=== PATIENT | female | born 1990 | race African-American/Black ===

== ENCOUNTER 2018-07-06 16:45 | Emergency (ER) | payer OTHER ==
[2018-07-06 17:44] LABS: Absolute Lymphocytes (CBC) 1.6 K/uL (0.7-4.9); Absolute Monocytes 0.6 K/uL (0.1-1.3); Absolute Neutrophil 6.6 K/uL (1.8-8.0); Basophils % 0.4 % (0-1.3); Eosinophils % 0.3 % (0-4.4); Hematocrit 33.1 % (36.0-45.0); Lymphocytes % 18.5 % (15.3-44.8); MCH 31.2 pg (27.0-35.0); MCV 92.4 fL (80-100); MPV 10.1 fL (7.6-11.3); Monocytes % 6.3 % (3.3-12.3); RBC Red Blood Cell Count 3.58 M/uL (3.86-4.86)
[2018-07-06 18:22] LABS: BUN Blood Urea Nitrogen 10 mg/dL (7-18); Bicarbonate 24 mmol/L (21-32); Glucose Level 105 mg/dL (74-106); Potassium 3.4 mmol/L (3.5-5.1); Sodium Level 138 mmol/L (136-145)
[2018-07-06] MEDS ORDERED: NA CHLORIDE 0.9% 1,000 ML ONE (18:26)
[2018-07-06 19:53] LABS: HCG, Quantitative 4558 mIU/mL (1-3)
--- NOTE | 2018-07-06 21:19 | RAD REPORT ---
EXAM DESCRIPTION: US - Pelvis Complete - 07/06/2018 9:11 pm CLINICAL HISTORY: , vaginal bleeding COMPARISON: None. TECHNIQUE: Transabdominal pelvic sonography was performed. FINDINGS: No intrauterine gestational sac or sac remnant seen. There is a 5 centimeter heterogeneous focus within the cervical canal believed to be hemorrhagic material. No myometrial mass. Trace amoun t of fluid in the cul-de-sac. Both ovaries are identified and normal. Blood flow is seen within the o varian stroma. No adnexal mass to suspect ectopic . IMPRESSION: Large hematoma in the cervical canal. No gestational sac or sac remnant in the uterus. No evidence for an ectopic .
--- NOTE | 2018-07-06 22:12 | ER ---
Nurse's Notes [facility] Name: Soco Silver Age: 28 yrs Sex: Female : 1990 Arrival Date: 07/06/2018 Time: 16:46 Bed 16 Private MD: Renny Guadarrama Diagnosis: Incomplete spontaneous without complication Presentation: 07/06 16:55 Presenting complaint: Patient states: Cramping since Saturday, bleeding heavily since la1 last nigh, about 10 weeks . Transition of care: patient was not received from another setting of care. Onset of symptoms was July 06, 2018. Risk Assessment: Do you want to hurt yourself or someone else? Patient reports no desire to harm self or others. Initial Sepsis Screen: Does the patient meet any 2 criteria? No. Patient's initial sepsis screen is negative. Does the patient have a suspected source of infection? No. Patient's initial sepsis screen is negative. Care prior to arrival: None. 16:55 Method Of Arrival: Ambulatory la1 16:55 Acuity: XOCHITL 2 la1 HOSIERY KNITTER: 16:58 5, 1, Living 3 kb 17:00 LMP N/A - Irregular menses rb1 Historical: - Allergies: 16:55 No Known Allergies; la1 - Home Meds: 17:00 None [Active]; rb1 - PMHx: 17:00 miscarriage; rb1 - PSHx: 17:00 None; rb1 - Immunization history:: Adult Immunizations up to date. - Social history:: Smoking status: Patient/guardian denies using tobacco. - Ebola Screening: : No symptoms or risks identified at this time. Screenin:00 Abuse screen: Denies threats or abuse. Nutritional screening: No deficits noted. rb1 Tuberculosis screening: No symptoms or risk factors identified. Fall Risk None identified. Assessment: 17:00 General: Appears in no apparent distress. comfortable. Pain: Complains of pain in left rb1 lower quadrant and right lower quadrant Pain radiates to back Pain currently is 6 out of 10 on a pain scale. Neuro: Level of Consciousness is awake, alert, obeys commands, Oriented to person, place, time, situation. Cardiovascular: Capillary refill < 3 seconds is brisk in bilateral fingers. Respiratory: Airway is patent Respiratory effort is even, unlabored, Respiratory pattern is regular, symmetrical. GI: No signs and/or symptoms were reported involving the gastrointestinal system. : Parent/caregiver report the patient having vaginal bleeding that is bright red with clots moderate flow x 4 pads today. Derm: Skin is dry, Skin is normal, Skin temperature is warm. 17:00 Obstetrical Assessment: Patient reports abdominal cramping, back pain. rb1 18:00 Reassessment: Patient appears in no apparent distress at this time. No changes from rb1 previously documented assessment. 19:05 Reassessment: Patient appears in no apparent distress at this time. No changes from jb4 previously documented assessment. Patient is alert, oriented x 3, equal unlabored respirations, skin warm/dry/pink. Pain: Denies pain. Cardiovascular: Patient's skin is warm and dry. Respiratory: Airway is patent Respiratory effort is even, unlabored, Respiratory pattern is regular, symmetrical. 20:00 Reassessment: Patient appears in no apparent distress at this time. No changes from jb4 previously documented assessment. Patient is alert, oriented x 3, equal unlabored respirations, skin warm/dry/pink. 21:00 Reassessment: Patient appears in no apparent distress at this time. No changes from jb4 previously documented assessment. Patient is alert, oriented x 3, equal unlabored respirations, skin warm/dry/pink. 22:00 Reassessment: Patient appears in no apparent distress at this time. No changes from jb4 previously documented assessment. Patient is alert, oriented x 3, equal unlabored respirations, skin warm/dry/pink. Provider at the bedside performing pelvic exam. 22:50 Reassessment: Patient appears in no apparent distress at this time. No changes from jb4 previously documented assessment. Patient is alert, oriented x 3, equal unlabored respirations, skin warm/dry/pink. Vital Signs: 16:54 Pulse 138; Resp 16; Temp 97.2; Pulse Ox 98% on R/A; la1 16:57 BP 121 / 98; la1 18:26 BP 123 / 89; Pulse 98; Resp 19; Pulse Ox 100% on R/A; Pain 6/10; rb1 19:00 BP 114 / 72; Pulse 77; Resp 18; Pulse Ox 100% on R/A; jb4 20:00 BP 104 / 75; Pulse 86; Resp 16; Pulse Ox 94% on R/A; jb4 21:00 BP 109 / 68; Pulse 82; Resp 16; Pulse Ox 97% on R/A; jb4 22:00 BP 115 / 57; Pulse 79; Resp 16; Pulse Ox 96% on R/A; jb4 22:50 BP 107 / 64; Pulse 76; Resp 18; Pulse Ox 100% ; jb4 ED Course: 16:46 Patient arrived in ED. sb2 16:47 Renny Guadarrama MD is Private Physician. sb2 16:48 Niecy Diaz FNP-C is [facility]. kb 16:48 Leonardo Mcclendon MD is Attending Physician. kb 16:54 Arm band placed on right wrist. la1 16:55 Triage completed. la1 17:00 Patient has correct armband on for positive identification. Bed in low position. Call rb1 light in reach. Side rails up X 1. Pulse ox on. NIBP on. Warm blanket given. 17:28 Initial lab(s) drawn, by me, sent to lab. T\T\S collected, blood band applied to patient. dh3 Inserted saline lock: 20 gauge in right antecubital area, using aseptic technique. Blood collected. 18:13 Angi Serna, RN is Primary Nurse. rb1 19:00 Report given to RANDY Contreras. rb1 19:49 Radiology exam delayed due to test not completed at this time. sg3 22:50 No provider procedures requiring assistance completed. IV discontinued, intact, jb4 bleeding controlled. Administered Medications: 18:26 Drug: NS 0.9% 1000 ml Route: IV; Rate: 1000 ml; Site: right antecubital; rb1 20:00 Follow up: Response: No adverse reaction; IV Status: Completed infusion jb4 22:49 Drug: [place] (7.5 mg-325 mg) 1 tabs Route: PO; jb4 22:49 Follow up: Response: No adverse reaction jb4 Outcome: 22:11 Discharge ordered by . kb 22:50 Discharged to home ambulatory. jb4 22:50 Condition: stable 22:50 Discharge instructions given to patient, family, Instructed on discharge instructions, follow up and referral plans. Demonstrated understanding of instructions, follow-up care. 22:51 Patient left the ED. jb4 Signatures: Niecy Diaz FNP-C FNP-Young Callahan RN RN la1 Angi Serna, RANDY RN rb1 Johan Dinero RN RN jb4 Kathie Unger 3 Christin Ariza 3 Lo Bee sb2 Corrections: (The following items were deleted from the chart) 18:32 16:55 PMHx: None; la1 rb1 22:14 22:11 Reassessment: Patient appears in no apparent distress at this time. No changes jb4 from previously documented assessment. Patient is alert, oriented x 3, equal unlabored respirations, skin warm/dry/pink. jb4
--- NOTE | 2018-07-06 22:13 | EDPHYS ---
Physician Documentation [facility] Name: Soco Silver Age: 28 yrs Sex: Female : 1990 Arrival Date: 07/06/2018 Time: 16:46 Bed 16 Private MD: Renny Guadarrama ED Physician Leonardo Mcclendon HPI: 07/06 16:58 This 28 yrs old Black Female presents to ER via Ambulatory with complaints of Vaginal kb Bleeding, + Preg <12wks. 16:58 The patient presents to the emergency department with abdominal pain, of the right kb lower quadrant and left lower quadrant, that started 3 day(s) ago, described as crampy, vaginal bleeding, that is moderate. The estimated gestational age is 8 weeks. course: care: private OB physician, Dr. Gonsalves, the patient's last check was July 03, 2018. Previous pregnancies: in previous pregnancies patient has had. Associated signs and symptoms: Pertinent positives: abdominal pain, vaginal bleeding. The patient has not experienced similar symptoms in the past. The patient has been recently seen by a physician: Dr. Gonsalves 4 day(s) ago. Pt states she saw Dr Gonsalves on for initial OB visit. Saturday started having vaginal bleeding and abd cramping. States symptoms got really bad last night and she was passing clots. Bleeding subsided today as well as pain, but it came back 1.5 hours ago . 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 - Social history:: Smoking status: Patient/guardian denies using tobacco. - Ebola Screening: : No symptoms or risks identified at this time. ROS: 16:58 Constitutional: Negative for fever, chills, and weight loss, Cardiovascular: Negative kb for chest pain, palpitations, and edema, Respiratory: Negative for shortness of breath, cough, wheezing, and pleuritic chest pain, Back: Negative for injury and pain, MS/Extremity: Negative for injury and deformity, Skin: Negative for injury, rash, and discoloration, Neuro: Negative for headache, weakness, numbness, tingling, and seizure. 16:58 Abdomen/GI: Positive for abdominal cramps. 16:58 : Positive for vaginal bleeding. Exam: 16:58 Constitutional: This is a well developed, well nourished patient who is awake, alert, kb and in no acute distress. Head/Face: Normocephalic, atraumatic. ENT: Nares patent. No nasal discharge, no septal abnormalities noted. Tympanic membranes are normal and external auditory canals are clear. Oropharynx with no redness, swelling, or masses, exudates, or evidence of obstruction, uvula midline. Mucous membranes moist. Neck: Trachea midline, no thyromegaly or masses palpated, and no cervical lymphadenopathy. Supple, full range of motion without nuchal rigidity, or vertebral point tenderness. No Meningismus. Chest/axilla: Normal chest wall appearance and motion. Nontender with no deformity. No lesions are appreciated. Cardiovascular: Regular rate and rhythm with a normal S1 and S2. No gallops, murmurs, or rubs. Normal PMI, no JVD. No pulse deficits. Respiratory: Lungs have equal breath sounds bilaterally, clear to auscultation and percussion. No rales, rhonchi or wheezes noted. No increased work of breathing, no retractions or nasal flaring. Abdomen/GI: Soft, non-tender, with normal bowel sounds. No distension or tympany. No guarding or rebound. No evidence of tenderness throughout. Skin: Warm, dry with normal turgor. Normal color with no rashes, no lesions, and no evidence of cellulitis. MS/ Extremity: Pulses equal, no cyanosis. Neurovascular intact. Full, normal range of motion. Neuro: Awake and alert, GCS 15, oriented to person, place, time, and situation. Cranial nerves II-XII grossly intact. Motor strength 5/5 in all extremities. Sensory grossly intact. Cerebellar exam normal. Normal gait. 22:08 : Pelvic Exam: External exam: is normal, Speculum exam: mild bleeding, blood clots in kb vaginal vault, os that is open, tissue in cervix is seen, discharge, bloody, the oil bay technician was present for the exam. Vital Signs: 16:54 Pulse 138; Resp 16; Temp 97.2; Pulse Ox 98% on R/A; la1 16:57 BP 121 / 98; la1 18:26 BP 123 / 89; Pulse 98; Resp 19; Pulse Ox 100% on R/A; Pain 6/10; rb1 19:00 BP 114 / 72; Pulse 77; Resp 18; Pulse Ox 100% on R/A; jb4 20:00 BP 104 / 75; Pulse 86; Resp 16; Pulse Ox 94% on R/A; jb4 21:00 BP 109 / 68; Pulse 82; Resp 16; Pulse Ox 97% on R/A; jb4 22:00 BP 115 / 57; Pulse 79; Resp 16; Pulse Ox 96% on R/A; jb4 22:50 BP 107 / 64; Pulse 76; Resp 18; Pulse Ox 100% ; jb4 MDM: 16:56 Patient medically screened. kb 17:01 Data reviewed: vital signs, nurses notes. Data interpreted: Pulse oximetry: on room air kb is 98 %. Interpretation: normal. 22:09 Counseling: I had a detailed discussion with the patient and/or guardian regarding: the kb historical points, exam findings, and any diagnostic results supporting the discharge/admit diagnosis, lab results, radiology results, the need for outpatient follow up, an OB/Gyne specialist, to return to the emergency department if symptoms worsen or persist or if there are any questions or concerns that arise at home. ED course: Discussed exam, history and diagnostics with Dr Isaac. Pt to call Dr Gonsalves's office in the morning for follow up and return for worsening bleeding or any other concerns. Pt understands and in agreement with plan of care. 07/06 16:56 Order name: Quantitative Hcg; Complete Time: 19:54 kb 07/06 16:56 Order name: Abo/rh Typing; Complete Time: 18:05 kb 07/06 16:56 Order name: Basic Metabolic Panel; Complete Time: 19:54 kb 07/06 16:56 Order name: CBC with Diff; Complete Time: 18:01 kb 07/06 21:20 Order name: US; Complete Time: 21:21 EDMS 07/06 16:56 Order name: Urine Test (obtain specimen); Complete Time: 19:09 kb 07/06 16:56 Order name: IV Saline Lock; Complete Time: 17:34 kb 07/06 16:56 Order name: Labs collected and sent; Complete Time: 17:34 kb 07/06 16:56 Order name: NPO; Complete Time: 17:34 kb 07/06 16:56 Order name: Urine Dipstick-Ancillary (obtain specimen); Complete Time: 19:09 kb 07/06 17:58 Order name: Vital Signs; Complete Time: 18:27 kb 07/06 21:23 Order name: Pelvic Exam Setup; Complete Time: 22:09 kb Administered Medications: 18:26 Drug: NS 0.9% 1000 ml Route: IV; Rate: 1000 ml; Site: right antecubital; rb1 20:00 Follow up: Response: No adverse reaction; IV Status: Completed infusion jb4 22:49 Drug: [place] (7.5 mg-325 mg) 1 tabs Route: PO; jb4 22:49 Follow up: Response: No adverse reaction jb4 Disposition: 07/07 07:41 Co-signature as Attending Physician, Leonardo Mcclendon MD I agree with the assessment and rafa plan of care. Disposition: 07/06/18 22:11 Discharged to Home. Impression: Incomplete spontaneous without complication. - Condition is Stable. - Discharge Instructions: Incomplete Miscarriage. - Medication Reconciliation Form, Thank You Letter, Antibiotic Education, Prescription Opioid Use, Work release form form. - Follow up: Emergency Department; When: As needed; Reason: Worsening of condition. Follow up: Private Physician; When: 2 - 3 days; Reason: Recheck today's complaints, Continuance of care, Re-evaluation by your physician. - Notes: Call Dr Gonsalves's office first thing in the morning for follow up Signatures: Dispatcher [employer] EDIL Niecy Diaz, BALER-C BALER-Leonardo Wolfe MD MD cha Attema, Lee, RN RN la1 Angi Serna, RN RN rb1 Johan Dinero, RN RN jb4 Corrections: (The following items were deleted from the chart) 07/06 18:32 16:55 PMHx: None; la1 rb1 22:51 22:11 07/06/2018 22:11 Discharged to Home. Impression: Incomplete spontaneous jb4 without complication. Condition is Stable. Forms are Medication Reconciliation Form, Thank You Letter, Antibiotic Education, Prescription Opioid Use. Follow up: Emergency Department; When: As needed; Reason: Worsening of condition. Follow up: Private Physician; When: 2 - 3 days; Reason: Recheck today's complaints, Continuance of care, Re-evaluation by your physician. kb
[2018-07-06] MEDS ORDERED: HYDROCODONE/APAP 7.5/325 MG TAB ONE (22:44)
[2018-07-06 23:04] VITALS: TEMP 97.2
[2018-07-06 23:13] VITALS: BP 107/64; O2SAT 100
== END 2018-07-06 22:51 | disposition home or self-care (01) ==
LOC: ER 16:45
DX: O03.4 Incomplete spontaneous abortion without complication (principal); Z3A.08 8 weeks gestation of pregnancy
CPT/HCPCS: 36415; 76856; 80048; 84702; 85025; 86900; 86901; 96360; 96361; 99284; J7030

== ENCOUNTER 2018-07-07 16:30 | Day surgery (SDC) | payer OTHER ==
[~2018-07-07 16:30] MED LIST: METHYLERGONOVINE 0.2 MG TAB PO PRN; METHYLERGONOVINE 0.2MG/ML AMP IM PRN; Rho(D) IG (HUMAN) 300 MCG SYR IM PRN
[2018-07-07 16:38] LABS: Absolute Lymphocytes (CBC) 3.1 K/uL (0.7-4.9); Absolute Monocytes 0.8 K/uL (0.1-1.3); Absolute Neutrophil 7.2 K/uL (1.8-8.0); Basophils % 0.9 % (0-1.3); Eosinophils % 0.4 % (0-4.4); Hematocrit 30.2 % (36.0-45.0); Lymphocytes % 27.7 % (15.3-44.8); MCH 31.6 pg (27.0-35.0); MCV 91.7 fL (80-100); MPV 10.7 fL (7.6-11.3); Monocytes % 6.8 % (3.3-12.3)
[2018-07-07 16:39] LABS: Urine Appearance CLEAR; Urine Bilirubin NEGATIVE (NEG); Urine Blood 3+ (NEG); Urine Color YELLOW; Urine Glucose NEGATIVE (NEG); Urine Protein NEGATIVE (NEG); Urine Specific Gravity <=1.005 (1.005-1.030)
[2018-07-07 16:47] LABS: Urine Microscopic Reflex ORDER UMIC
[2018-07-07] MEDS ORDERED: CEFAZOLIN 1GM (PREMIX IV) 1 GM/50 ML BAG ONE (16:57)
[2018-07-07] MEDS ORDERED: OXYTOCIN/LR 20 UNIT/1,000 ML BAG IV SCH (17:00)
[2018-07-07 17:03] LABS: Urine Bacteria NONE SEEN /HPF (<20); Urine RBC >50 /HPF (NONE SEEN)
[2018-07-07 17:04] LABS: Urine Culture Reflex Order NOT NEEDED
[2018-07-07 17:29] LABS: Protime INR 1.12
[2018-07-07] MEDS ORDERED: LIDOCAINE 2% MPF 5 ML VIAL ONE (19:55)
[2018-07-07] MEDS ORDERED: PROPOFOL 200 MG/20 ML VIAL IV ONE (19:55)
[2018-07-07] MEDS ORDERED: FENTANYL CITR 100 MCG/2 ML ONE (19:56)
[2018-07-07] MEDS ORDERED: SILVER NITRATE 1 APPL TOP ONE (19:58)
[2018-07-07] MEDS ORDERED: Ringers Lactate 1,000 ML IV ONE (20:01)
[2018-07-07] MEDS ORDERED: DEXAMETHASONE 10 MG/ML VIAL ONE (20:25)
[2018-07-07] MEDS ORDERED: KETOROLAC 30 MG/ML INJ ONE (20:25)
[2018-07-07] MEDS ORDERED: ONDANSETRON 4 MG/2 ML VIAL ONE (20:26)
[2018-07-07] MEDS ORDERED: METHYLERGONOVINE 0.2MG/ML AMP IM ONE (20:27)
--- NOTE | 2018-07-07 20:34 | PREOPHP ---
Date of Admission: 07/07/2018 Soco Silver a 28-year-old 5, para 3, 1 miscarriage, now second miscarriage in progress, st arted bleeding and cramping on Saturday, went to the emergency room yesterday, saw clots, had ultraso und demonstrated a 5 cm mass in the lower part of the uterus probably the products of conception mushtaq mckee expelled. They did not remove them at that time. Said they could not see because of blood clots, was sent home. She is now back in my office cramping and bleeding fairly substantially with lots of clots, tried to remove it from the os, but could not see well enough. I offered to give the patient Cytotec and see if she would clear this by the morning, but she says she cannot take the discomfort a nd wants to proceed with D and C. Infection, blood loss, anesthetic complications, injury to bladder , bowel, ureter, postoperative complications discussed. The patient knows fully well this does not c onstitute all and possible problems could occur during or following surgery. She is Rh positive and therefore will not need RhoGAM. Aunt with hypertension, same aunt with diabetes. Father with lung c ancer. No allergies. No medicines prior to admission other than vitamins. Age pizza at 10 a.m., no thing since then. Does not smoke. HEENT: Clear. Pupils equal, round, and reactive to light and accommodation. Conjunctivae well perf used. No oral, lingual, or buccal lesions. Chest and Lungs: Clear. Heart: Without murmurs, thrills, heaves, or rubs. Extremities: Clear. : Uterus is still in the 10 week size range, mildly tender and significant amount of clots noted. We will proceed with D and C as soon as possible. EZE/ANDREA Voice ID: [id number]
[2018-07-07 21:11] VITALS: TEMP 97.4
[2018-07-07 21:34] VITALS: BP 111/66; O2SAT 99
--- NOTE | 2018-07-08 06:13 | OP ---
Surgeon: Dean Gonsalves MD Indications: A 28-year-old female with preop diagnosis, incomplete . Rh positive, therefore no RhoGAM needed. Infection; blood loss; anesthetic complications; injury to bladder, bowel, ureter ; postoperative complications; clots in legs; and pneumonia were discussed. Expectant management als o discussed at length with the patient wishes to proceed. She was told to stay n.p.o. and taken to [facility]. Procedure In Detail: General anesthetic was employed with endotracheal intubation. Patient placed i n the dorsal lithotomy position. Timeout was performed. Tenaculum was placed on the anterior cervic al lip, which was already widely dilated. A 12 mm suction curette was used to evacuate moderate amou nt of obviously necrotic tissue. Suction curettement was followed by sharp curettement suction, and second light sharp curettement. Total blood loss 100 mL or less. Procedure discontinued at this poi nt. No further bleeding seen. The patient was transferred to the recovery room in good condition. Final Diagnoses: Incomplete , first trimester; suction curettage for uterine evacuation. Ge neral anesthesia, endotracheal intubation. EZE/ANDREA Voice ID: [id number] Report ID: [id number]
--- NOTE | 2018-07-08 06:14 | DS ---
Date of Discharge: 07/07/2018 Hospital Course: Patient underwent suction curettage for uterine evacuation with a moderate amount o f necrotic tissue obtained. She is Rh positive, therefore will not need RhoGAM. She was given 1 g o f Ancef. Prior to the procedure, will be dismissed with doxycycline 100 mg to be taken twice a day f or 4 additional doses. She is to report any temperature elevation of 100 degrees or greater, severe pain, heavy bleeding, or any other type of abnormalities, she is to see me next week, sooner if any ana lilia lorenzo. Final Diagnoses: First trimester, incomplete , suction curettage for uterine evacuation. Ge neral anesthesia with endotracheal intubation. EZE/ANDREA Voice ID: [id number] Report ID: [id number]
[2018-07-08] MEDS ORDERED: CEFAZOLIN 1GM (PREMIX IV) 1 GM/50 ML BAG IV SCH (06:30)
--- NOTE | 2018-07-08 13:01 | HP ---
Date of Admission: 07/07/2018 History Of Present Illness: This is a 28-year-old female with preoperative diagnosis of first trimes ter incomplete , Rh positive, therefore no RhoGAM needed. Options given including expectant management; patient wished to proceed with D and C; infection; blood loss; anesthetic complications; injury to bladder, bowel, ureter; postoperative complications; clots in legs and pneumonia were discu ssed. The patient knows fully well this does not constitute all and possible problems that could occ ur during or following surgery. Family History: Noncontributory in this particular instance. Review of Systems: Noncontributory. Physical Examination: HEENT: Clear. Pupils equal, round, and reactive to light and accommodation. Conjunctivae well perf used. No oral, lingual, or buccal lesions. Chest and Lungs: Clear. Heart: Without murmurs, thrills, heaves, or rubs. Breasts: Not examined. Abdomen: Clear. Uterus in the 10-11 weeks size range. Extremities: Clear without edema, cyanosis, or clubbing. Incomplete for suction curettage, evacuation EZE/MODL Voice ID: [id number]
== END 2018-07-07 21:43 | disposition home or self-care (01) ==
LOC: OR 16:30
PROVIDERS: ATTEND Specialist
PROC: 10D17ZZ Extraction of Products of Conception, Retained, Via Natural or Artificial Opening (ICD-10-PCS; principal; 2018-07-07 19:00)
DX: O03.4 Incomplete spontaneous abortion without complication (principal); Z80.1 Family history of malignant neoplasm of trachea, bronchus and lung
CPT/HCPCS: 36415; 81003; 81015; 85025; 85610; 85730; 86850; 86900; 86901; 88305; J0690; J1100; J2210; J2405; J2590; J2704; J3010

== ENCOUNTER 2022-01-17 12:08 | Day surgery (SDC) | payer BC ==
[2022-01-17 13:14] LABS: Urine Blood 2+ (Negative); Urine Glucose Negative (Negative); Urine Protein Negative (Negative); Urine Specific Gravity >=1.030 (1.005-1.030); Urine pH 5.5 (5.0-7.0)
[2022-01-17 13:55] LABS: Hematocrit 37.9 % (36.0-45.0); MPV 10.3 fL (7.6-11.3); RBC Red Blood Cell Count 4.12 M/uL (3.86-4.86)
[2022-01-17 14:02] LABS: Urine Bacteria 20-50 /HPF (<20); Urine Mucus 1+ /HPF (NONE SEEN); Urine RBC <5 /HPF (NONE SEEN)
[2022-01-17 14:11] LABS: Albumin 3.9 g/dL (3.4-5.0); Bilirubin Total 0.9 mg/dL (0.2-1.0); Potassium 4.2 mmol/L (3.5-5.1); Protein, Total 8.2 g/dL (6.4-8.2)
[2022-01-17] MEDS ORDERED: MORPHINE 4 MG/ML SYR ONE (14:42)
[2022-01-17] MEDS ORDERED: ONDANSETRON 4 MG/2 ML VIAL ONE ×2 (14:42→16:47)
--- NOTE | 2022-01-17 15:06 | RAD REPORT ---
EXAM DESCRIPTION: CTAbdomen Pelvis W Contrast - 01/17/2022 2:56 pm CLINICAL HISTORY: RLQ abdominal pain COMPARISON: No comparisons TECHNIQUE: CT of the abdomen and pelvis was performed. All CT scans are performed using dose optimization technique as appropriate and may include automated exposure control or mA/KV adjustment according to patient size. FINDINGS: Lower chest: No acute abnormality. Liver: No acute abnormality or suspicious lesions. Biliary: No biliary ductal dilatation. Stomach: No significant focal abnormality. Duodenum: No significant focal abnormality. Pancreas: No significant abnormality. Spleen: No significant abnormality. Adrenal: No suspicious lesions. Kidney/ureter: No hydronephrosis. No renal calculi. Retroperitoneum: No retroperitoneal adenopathy. Vascular: No aneurysm. Bowel: Retrocecal appendix with periappendiceal inflammatory changes. No perforation or abscess.. Peritoneum: No ascites or free air. Bladder: Grossly unremarkable. Reproductive: No adnexal masses. Bones: No acute fracture. Other: n/a IMPRESSION: Acute nonperforated appendicitis. No abscess.
--- NOTE | 2022-01-17 15:13 | ER ---
Nurse's Notes [facility] Name: Soco Silver Age: 31 yrs Sex: Female : 1990 Arrival Date: 01/17/2022 Time: 12:09 Bed 10 Private MD: Susi Max Diagnosis: Lower abdominal pain, unspecified;Acute appendicitis with localized peritonitis Presentation: 01/17 12:26 Chief complaint: Patient states: my stomach has been hurting since about 5 am this tw2 morning. right in the middle and radiates to my back. +N. Coronavirus screen: At this time, the client does not indicate any symptoms associated with coronavirus-19. Ebola Screen: Patient denies travel to an Ebola-affected area in the 21 days before illness onset. Initial Sepsis Screen: Does the patient meet any 2 criteria? HR > 90 bpm. No. Patient's initial sepsis screen is negative. Does the patient have a suspected source of infection? No. Patient's initial sepsis screen is negative. Risk Assessment: Do you want to hurt yourself or someone else? Patient reports no desire to harm self or others. Onset of symptoms was January 17, 2022. 12:26 Method Of Arrival: Ambulatory tw2 12:26 Acuity: XOCHITL 3 tw2 Triage Assessment: 12:28 General: Appears uncomfortable, well groomed, Behavior is calm, cooperative, tw2 appropriate for age. Pain: Complains of pain in abdomen. GI: Reports lower abdominal pain, nausea. Historical: - Allergies: 12:28 No Known Allergies; tw2 - Home Meds: 12:28 None [Active]; tw2 - PMHx: 12:28 miscarriage; Migraine; tw2 - PSHx: 12:28 None; tw2 - Immunization history:: Client reports receiving the 2nd dose of the Covid vaccine. - Social history:: Smoking status: Patient denies any tobacco usage or history of. Screenin:15 Abuse screen: Denies threats or abuse. Denies injuries from another. Nutritional ld1 screening: No deficits noted. Tuberculosis screening: No symptoms or risk factors identified. Fall Risk None identified. Assessment: 13:15 Reassessment: See triage assessment. ld1 14:32 General: Appears in no apparent distress. uncomfortable, Behavior is calm, cooperative, ld1 appropriate for age. Pain: Complains of pain in right lower quadrant Pain does not radiate. Pain currently is 8 out of 10 on a pain scale. Quality of pain is described as throbbing. Neuro: Level of Consciousness is awake, alert, obeys commands, Oriented to person, place, time, situation. Cardiovascular: Capillary refill < 3 seconds Patient's skin is warm and dry. Respiratory: Airway is patent Respiratory effort is even, unlabored. GI: Abdomen is round non-distended, Bowel sounds present X 4 quads. Abd is soft Abdomen is tender to palpation in right upper quadrant and right lower quadrant. : No signs and/or symptoms were reported regarding the genitourinary system. EENT: No signs and/or symptoms were reported regarding the EENT system. Derm: No signs and/or symptoms reported regarding the dermatologic system. Musculoskeletal: No signs and/or symptoms reported regarding the musculoskeletal system. Vital Signs: 12:26 BP 126 / 87; Pulse 118; Resp 17; Temp 98.4(TE); Pulse Ox 100% on R/A; Weight 97.52 kg tw2 (R); Height 5 ft. 5 in. (165.10 cm); Pain 7/10; 13:15 BP 129 / 86; Pulse 102; Resp 18; Pulse Ox 100% on R/A; Pain 7/10; ld1 12:26 Body Mass Index 35.78 (97.52 kg, 165.10 cm) tw2 ED Course: 12:09 Patient arrived in ED. as 12:09 Susi Max is Private Physician. as 12:28 Triage completed. tw2 12:28 Arm band placed on. tw2 12:32 Jovanny Michelle MD is Attending Physician. kdr 12:39 Marleny Adler, RANDY is Primary Nurse. ld1 13:14 Urine Microscopic Only Sent. ld1 13:15 Patient has correct armband on for positive identification. Placed in gown. Bed in low ld1 position. Call light in reach. Side rails up X2. elevator constructor electric on. Pulse ox on. NIBP on. Door closed. Noise minimized. Warm blanket given. 13:15 No provider procedures requiring assistance completed. Missed attempt(s): 20 gauge in ld1 right antecubital area. 13:15 Missed attempt(s): 20 gauge in left antecubital area. ld1 14:58 CT Abd/Pelvis - IV Contrast Only In Process Unspecified. EDMS 15:12 Sam Rene MD is Hospitalizing Provider. kdr 15:33 COVID-19 SARS RT PCR (Document "Date of Onset" if Symptomatic) Sent. ld1 15:33 Patient admitted, IV remains in place. ld1 Administered Medications: 14:39 Drug: Zofran (Ondansetron) 4 mg Route: PO; ld1 14:40 Drug: morphine 4 mg Route: IVP; Infused Over: 4 mins; Site: right forearm; ld1 15:33 Drug: Zosyn (piperacillin-tazobactam) 3.375 grams Route: IVPB; Infused Over: 60 mins; ld1 Site: right forearm; 15:33 Drug: NS 0.9% 1000 ml Route: IV; Rate: 1 bolus; Site: right forearm; ld1 Medication: 13:15 VIS not applicable for this client. ld1 Outcome: 15:13 Decision to Hospitalize by Provider. kdr 15:33 Admitted to OR accompanied by nurse, via stretcher, with chart. ld1 15:33 Condition: stable 15:33 Instructed on the need for admit. 15:34 Patient left the ED. ld1 Signatures: Dispatcher [employer] EDMS Jovanny Michelle MD MD kdr Martinez, Amelia as Wise, Tara, RN RN tw2 Marleny Adler RN RN ld1
--- NOTE | 2022-01-17 15:13 | EDPHYS ---
Physician Documentation [facility] Name: Soco Silver Age: 31 yrs Sex: Female : 1990 Arrival Date: 01/17/2022 Time: 12:09 Bed 10 Private MD: Susi Max ED Physician Jovanny Michelle HPI: 01/17 15:58 This 31 yrs old Black Female presents to ER via Ambulatory with complaints of Abdominal kdr Pain. 15:58 The patient presents with abdominal pain in the periumbilical area. right lower kdr quadrant. Onset: The symptoms/episode began/occurred suddenly, at 05:00. The symptoms radiate to right back. Associated signs and symptoms: Pertinent positives: nausea, Pertinent negatives: anorexia, blood in stools, chest pain, constipation, diarrhea, dysuria, palpitations, shortness of breath, vomiting, vomiting blood. The symptoms are described as achy, constant, sharp. Modifying factors: The symptoms are alleviated by nothing, antacids, the symptoms are aggravated by movement, touching the area. Severity of pain: At its worst the pain was mild in the emergency department the pain is unchanged. The patient has not experienced similar symptoms in the past. The patient has not recently seen a physician. Historical: - Allergies: 12:28 No Known Allergies; tw2 - Home Meds: 12:28 None [Active]; tw2 - PMHx: 12:28 miscarriage; Migraine; tw2 - PSHx: 12:28 None; tw2 - Immunization history:: Client reports receiving the 2nd dose of the Covid vaccine. - Social history:: Smoking status: Patient denies any tobacco usage or history of. ROS: 15:58 Constitutional: Negative for fever, chills, and weight loss, Eyes: Negative for injury, kdr pain, redness, and discharge, ENT: Negative for injury, pain, and discharge, Neck: Negative for injury, pain, and swelling, Cardiovascular: Negative for chest pain, palpitations, and edema, Respiratory: Negative for shortness of breath, cough, wheezing, and pleuritic chest pain, Back: Negative for injury and pain, : Negative for injury, bleeding, discharge, and swelling, MS/Extremity: Negative for injury and deformity, Skin: Negative for injury, rash, and discoloration, Neuro: Negative for headache, weakness, numbness, tingling, and seizure activity. Psych: Negative for depression, anxiety, suicide ideation, homicidal ideation, and hallucinations, Allergy/Immunology: Negative for hives, rash, and allergies, Endocrine: Negative for neck swelling, polydipsia, polyuria, polyphagia, and marked weight changes, Hematologic/Lymphatic: Negative for swollen nodes, abnormal bleeding, and unusual bruising. 15:58 Abdomen/GI: Positive for abdominal pain, nausea, Negative for diarrhea, constipation, abdominal cramps, abdominal distension, anorexia, dysphagia, hematemesis, black/tarry stool, rectal pain, rectal bleeding. Exam: 15:58 Constitutional: This is a well developed, well nourished patient who is awake, alert, kdr and in no acute distress. Head/Face: Normocephalic, atraumatic. Eyes: Pupils equal round and reactive to light, extra-ocular motions intact. Lids and lashes normal. Conjunctiva and sclera are non-icteric and not injected. Cornea within normal limits. Periorbital areas with no swelling, redness, or edema. Neck: Trachea midline, no thyromegaly or masses palpated, and no cervical lymphadenopathy. Supple, full range of motion without nuchal rigidity, or vertebral point tenderness. No Meningismus. Chest/axilla: Normal chest wall appearance and motion. Nontender with no deformity. No lesions are appreciated. Cardiovascular: Regular rate and rhythm with a normal S1 and S2. No gallops, murmurs, or rubs. Normal PMI, no JVD. No pulse deficits. Respiratory: Lungs have equal breath sounds bilaterally, clear to auscultation and percussion. No rales, rhonchi or wheezes noted. No increased work of breathing, no retractions or nasal flaring. Back: No spinal tenderness. No costovertebral tenderness. Full range of motion. Skin: Warm, dry with normal turgor. Normal color with no rashes, no lesions, and no evidence of cellulitis. MS/ Extremity: Pulses equal, no cyanosis. Neurovascular intact. Full, normal range of motion. Neuro: Awake and alert, GCS 15, oriented to person, place, time, and situation. Cranial nerves II-XII grossly intact. Motor strength 5/5 in all extremities. Sensory grossly intact. Cerebellar exam normal. Normal gait. Psych: Awake, alert, with orientation to person, place and time. Behavior, mood, and affect are within normal limits. 15:58 Abdomen/GI: Inspection: obese Bowel sounds: active, diminished, in all quadrants, Palpation: soft, mild abdominal tenderness, in the right lower quadrant, rebound tenderness, is not appreciated, voluntary guarding, is elicited in the right lower quadrant. Vital Signs: 12:26 BP 126 / 87; Pulse 118; Resp 17; Temp 98.4(TE); Pulse Ox 100% on R/A; Weight 97.52 kg tw2 (R); Height 5 ft. 5 in. (165.10 cm); Pain 7/10; 13:15 BP 129 / 86; Pulse 102; Resp 18; Pulse Ox 100% on R/A; Pain 7/10; ld1 12:26 Body Mass Index 35.78 (97.52 kg, 165.10 cm) tw2 MDM: 15:13 Patient medically screened. kdr 15:58 Data reviewed: vital signs, nurses notes, lab test result(s), radiologic studies. kdr Counseling: I had a detailed discussion with the patient and/or guardian regarding: the historical points, exam findings, and any diagnostic results supporting the discharge/admit diagnosis, lab results, radiology results, the need for further work-up and treatment in the hospital. Physician consultation: Sam Rene MD. 01/17 12:42 Order name: CBC with Diff; Complete Time: 14:27 [facility] 01/17 12:42 Order name: CMP; Complete Time: 14:27 [facility] 01/17 12:42 Order name: Lipase; Complete Time: 14:27 [facility] 01/17 12:42 Order name: Urine Microscopic Only; Complete Time: 14:27 [facility] 01/17 13:14 Order name: Urine Dipstick-Ancillary; Complete Time: 14:27 [facility] 01/17 12:42 Order name: IV Saline Lock; Complete Time: 13:33 em1 01/17 14:06 Order name: Urine Culture [facility] 01/17 14:15 Order name: CT Abd/Pelvis - IV Contrast Only; Complete Time: 15:10 kdr 01/17 15:23 Order name: COVID-19 SARS RT PCR (Document "Date of Onset" if Symptomatic) 01/17 12:42 Order name: Labs collected and sent; Complete Time: 13:33 em 01/17 12:42 Order name: Urine Dipstick-Ancillary (obtain specimen); Complete Time: 13:14 em1 01/17 12:42 Order name: Urine Test (obtain specimen); Complete Time: 13:14 em1 Administered Medications: 14:39 Drug: Zofran (Ondansetron) 4 mg Route: PO; ld1 14:40 Drug: morphine 4 mg Route: IVP; Infused Over: 4 mins; Site: right forearm; ld1 15:33 Drug: Zosyn (piperacillin-tazobactam) 3.375 grams Route: IVPB; Infused Over: 60 mins; ld1 Site: right forearm; 15:33 Drug: NS 0.9% 1000 ml Route: IV; Rate: 1 bolus; Site: right forearm; ld1 Disposition Summary: 01/17/22 15:13 Hospitalization Ordered Hospitalization Status: Observation kdr Provider: Sam Rene Location: Telemetry/MedSurg (observation) kdr Condition: Fair kdr Problem: new kdr Symptoms: have improved kdr Bed/Room Type: Standard kdr Room Assignment: kdr Diagnosis - Lower abdominal pain, unspecified kdr - Acute appendicitis with localized peritonitis kdr Forms: - Medication Reconciliation Form kdr - SBAR form kdr Signatures: Dispatcher [employer] EDMS Jovanny Michelle MD MD kdr Elgin Mckeon em1 Luz Newman RN RN tw2 Marleny Adler RN RN ld1
[2022-01-17] MEDS ORDERED: NA CHLORIDE 0.9% 100 ML ONE (15:33)
[2022-01-17] MEDS ORDERED: NA CHLORIDE 0.9% 1,000 ML ONE (15:33)
[2022-01-17] MEDS ORDERED: PIPERACIL/TAZO 3.375 GM VIAL IV ONE (15:33)
[2022-01-17] MEDS ORDERED: Ringers Lactate 1,000 ML IV ONE ×2 (15:44→17:13)
[2022-01-17] MEDS ORDERED: propofoL 200 MG/20 ML VIAL IV ONE (15:53)
[2022-01-17] MEDS ORDERED: FENTANYL CITR 100 MCG/2 ML ONE (15:54)
[2022-01-17] MEDS ORDERED: MIDAZOLAM HCL 2 MG/2 ML INJ ONE (15:54)
[2022-01-17] MEDS ORDERED: LIDOCAINE 1% MPF 5 ML VIAL ONE (15:54)
[2022-01-17] MEDS ORDERED: ROCURONIUM 50 MG/5 ML VIAL IV ONE (15:54)
[2022-01-17] MEDS ORDERED: BUPIVACAINE 0.25% PF 10 ML VIAL ONE (15:55)
[2022-01-17] MEDS ORDERED: SUCCINYLCHOLINE 20 MG/ML (10 ML) IV ONE (15:57)
[2022-01-17] MEDS ORDERED: KETOROLAC 30 MG/ML INJ ONE (16:47)
[2022-01-17] MEDS ORDERED: dexAMETHasone 10 MG/ML VIAL ONE (16:47)
[2022-01-17] MEDS ORDERED: NEOSTIGMINE 1 MG/ML -10 ML VIAL ONE (16:47)
[2022-01-17] MEDS ORDERED: GLYCOPYRROLATE 0.2 MG/ML SYR ONE ×2 (16:47→17:01)
--- NOTE | 2022-01-17 17:10 | P.OP ---
Preoperative diagnosis: Acute Appendicitis Postoperative diagnosis: Acute Appendicitis Primary procedure: Laparoscopic Appendectomy Anesthesia: GETA + Local Estimated blood loss: <5cc Specimen: Vermiform Appendix Findings: Acute non-perforated appendicitis Complications: None Implants: none Transferred to: Recovery Room Condition: Good
[2022-01-17] MEDS ORDERED: MORPHINE 10 MG/ML VIAL ONE (17:12)
[2022-01-17] MEDS: MEPERIDINE HCL 25 MG/ML SYR ONE ×2 (17:31→17:57)
[2022-01-17] MEDS ORDERED: HYDROCODONE/APAP 5/325 MG TAB ONE (18:34)
[2022-01-17 18:55] VITALS: BP 141/73; TEMP 97.5; O2SAT 100
--- NOTE | 2022-01-17 20:47 | OP ---
Date of Procedure: 01/17/2022 Surgeon: Sam Rene MD, Preoperative Diagnosis: Acute appendicitis. Postoperative Diagnosis: Acute appendicitis. Procedures Performed: Laparoscopic appendectomy. Anesthesia: General endotracheal plus local with 0.25% Marcaine. Estimated Blood Loss: Less than 5 cc. Specimen: Vermiform appendix. Findings: Acute nonperforated appendicitis. Complications: None. Implants: None. Disposition: The patient was transferred to the recovery room in good condition. Procedure In Detail: After informed consent was obtained, the patient was brought to the operating r oom, prepped and draped in the usual sterile fashion after adequate anesthesia was achieved. The inf raumbilical area was anesthetized with 0.25% Marcaine, sharply incised. A 5 mm trocar was placed und er direct visualization without evidence of complication. Insufflation was obtained to 15 mmHg at th is time. No injury to vital structure upon entry into the abdomen. Two additional trocars were plac ed; 1 in the right lower quadrant, 1 in the left lower quadrant. Both of these similarly anesthetize d, sharply incised. A 5 mm trocar was placed under direct visualization without evidence of complica tion. The umbilical trocar was then upsized to a 12 mm under direct visualization without evidence o f complication. The patient was positioned head down right side up position. Ratcheted grasper was used to grasp the patient's appendix, which was found to be quite inflamed and dilated with suppurati ve changes, but no obvious perforation. A mesoappendiceal window was created with a [place] retract or. An Endo-ELSIE 45 purple load fired across the base of the appendix with good approximation of tiss ues at the confluence of the cecum. I then used the LigaSure to take the mesoappendix out without ev idence of complication. At this point, I placed the appendix in EndoCatch bag, removed through the u mbilical trocar and sent off for pathologic examination. The abdomen was then re-insufflated at this point. The area was copiously irrigated. Hemostasis was achieved at this point with minimal oozing from the staple line. As such, I placed additional 2-3 titanium clips across the area of the staple line that looked like had some slow oozing at the confluence of the cecum. At this point, hemostasi s was achieved with no oozing whatsoever. I then turned my attention to irrigation of the pelvis. T here was some free fluid in the pelvis, which was slightly murky. I irrigated this and suctioned out until completely clear. The patient was positioned back in neutral position and remaining effluent was suctioned out. The umbilical trocar site was closed using a Jaskaran-Estelle suture passer with 0 Vicryl in an interrupted fashion with good approximation of tissues. The abdomen was completely bonifacio ufflated under direct visualization without evidence of complication. All remaining trocars were rem job. All skin incisions were copiously irrigated and closed with 4-0 Monocryl in a running fashion. Dermabond placed over top. The patient tolerated the procedure well without evidence of complicati on and transferred to PACU in good condition. All counts were correct at the end of the case. ALEE/ANDREA Voice ID: [id number] Report ID: [id number]
--- NOTE | 2022-01-17 20:53 | HP ---
Date of Admission: 01/17/2022 History Of Present Illness: The patient is a 31-year-old pleasant female with a past medical history of only migraines and miscarriage, who presents with a 1-day history of periumbilical right lower qu adrant abdominal pain, which began earlier today, became severe, not associated with sick contacts, r ecent travel, or new food exposures. DICTATION ENDS HERE BRIGITTE Voice ID: [id number]
== END 2022-01-17 18:48 | disposition home or self-care (01) ==
LOC: ER 12:08 → DS 16:05
PROVIDERS: ATTEND Surgery
PROC: 0DTJ4ZZ Resection of Appendix, Percutaneous Endoscopic Approach (ICD-10-PCS; principal; 2022-01-17 15:45)
DX: K35.80 Unspecified acute appendicitis (principal); Z20.822 Contact with and (suspected) exposure to COVID-19
CPT/HCPCS: 87088; 85025; 87086; 36415; 88304; 83690; 80053; 74177; 96375; 96374; 99285; 44970; U0003; Q9967; J2704; J2710; J0330; J2543; J2250; J3010; J1100; J2175; J7120 ×2; J7030; J2405 ×2; 81003; 81015

== ENCOUNTER 2022-10-24 12:03 | Emergency (ER) | payer BC ==
--- OUTSIDE RECORDS SUMMARY | 2022-10-24 12:23 | XMS REPORT | Continuity of Care Document ---
:1990 Author Organization [facility] t Address [address] [place] [id number] Care Team Providers Name Role Phone JUSTIN YOUSSEF Attending Clinician Unavailable Susi Max Attending Clinician Unavailable Lissette Dave Attending Clinician Unavailable Justin Youssef MD Attending Clinician [phone] Sofia Janel STEPHENSON Attending Clinician Unavailable JUSTIN YOUSSEF Admitting Clinician Unavailable Payers Payer Name Policy Type Policy Number Effective Date Expiration Date S cary BS OS [id number] 2021 00:00:00 POS/PPO/EPO Problems This patient has no known problems. Allergies, Adverse Reactions, Alerts Allergy Allergy Status Severity Reaction(s) Onset Inactive Treating Comm ents Source Name Type Date Date Clinician NO KNOWN Allergy Active [facility] ALLERGIE S Social History Social Habit Start Date Stop Date Quantity Comments Source Exposure to 2022-10-09 2022-10-[address] [facility] SARS-CoV-2 00:00:00 10:48:00 [facility] (event) Alcohol Comment 2022-10-19 2022-10-[address] [facility] 00:00[facility]00 00:00:00 [facility] Alcohol intake 2022-10-19 2022-10-19 [facility] drinker of [facility] 00:[facility] 00:00:00 alcohol (finding) [facility] Tobacco use and 2022-07-18 2022-07-18 Smokeless tobacco [facility] exposure 00:00:00 00:00:00 non-user [facility] Sex Assigned At [address] [facility] 00:00:00 00:00:00 [facility] Smoking Status Start Date Stop Date Source Never smoked tobacco [facility] Medications Ordered Filled Start Stop Current Ordering Indication Dosage Frequency Signature Comments Components Source Medication Medication Date Date Medication? Clinician (SIG) Name Name lisinopriL Yes 10mg QD Take [address] (PRINIVIL,Z 3-17 by mouth Luke s ESTRIL) 10 10:48: daily. Medic al MG tablet Center Vital Signs Vital Name Observation Time Observation Value Comments Source HEIGHT 2022-07-18 10:47:00 161.3 cm WEIGHT 2022-07-18 10:47:00 101.742 kg HEIGHT 2022-07-18 10:47:00 161.3 cm WEIGHT 2022-07-18 10:47:00 101.742 kg Body height 2022-10-19 10:45:00 165.1 cm [facility] Body weight 2022-10-19 10:45:00 104.327 kg [facility] BMI 2022-10-19 10:45:00 38.27 kg/m2 [facility] Systolic blood 2022-07-18 10:47:00 176 mm[Hg] [facility] Diastolic blood 2022-07-18 10:47:00 99 mm[Hg] [facility] Heart rate 2022-07-18 10:47:00 93 /min [facility] Body temperature 2022-07-18 10:47:00 36.72 [facility] Procedures This patient has no known procedures. Plan of Care Planned Activity Planned Date Details Comments Source Future Scheduled Test 2023-10-[address] [facility] 00:00:00 [facility] Cent[facility] r Screening (12+) [code = Tobacco Cessation Counseling and Screening (12+)] Future Scheduled Test 2022-08-05 DE[facility]ION [facility]CREENING [facility] 00:00:00 (12+) [code = Medical Center DEPRESSION SCREENING (12+)] Future Scheduled Test 2022-04-[address] [facility] 00:00:00 (#1) [code = Medical [place] INFLUENZA VACCINE (#1)] Future Scheduled Test 2011 [facility] malignant neoplasm Medical C enter of cervix (procedure) [code = 691465430] Future Scheduled Test [address] [facility] 00:00:00 (procedure) [code = Medical Center [id number]] Future Scheduled Test 2009 DTAP/TDAP/TD [facility] 00:00:00 VACCINES (1 - Tdap) Medical Center [code = DTAP/TDAP/TD VACCINES (1 - Tdap)] Future Scheduled Test [address] [facility] 00:00:00 SCREENING [code = Medical nt HEPATITIS C SCREENING] Future Scheduled Test 1990 COVID-[address] [facility] 00:00:00 (#1) [code = [facility] COVID-19 VACCINE (#1)] Future Appointment 2022-11-28 Justin Youssef MD, [facility] 09:00:00 [address], [address], [place] [address] Future Appointment 2022-11-28 Justin Youssef MD, [facility] 09:00:00 [address], [address], [place] [address] Procedure 2022-11-[address] [facility] En[facility]ters Start End Encounter Admission Attending Care Care Encounter Source Date/Time Date/Time Type Type Clinicians Facility Department ID 2022-10-24 Outpatient CHRISTOPHER YOUSSEF Surgery [id number] [facility] 10:25:52 [place] 2022-10-19 [facility] [id number] [facility] 08:10:54 [place] 2022-08-29 Outpatient Mansoor [facility] [id number] [facility] 14:09:03 Susi [id number] [facility] 2022-12-05 2022-12-05 Outpatient ESTEBAN YOUSSEF [facility] [id number] 00:00:00 00:00:00 [facility] 2022-10-31 2022-10-31 Outpatient ESTEBAN YOUSSEF [facility] [id number] 00:00:00 00:00:00 [facility] 2022-10-22 2022-10-22 Outpatient EL [facility] [id number] [facility] 00:00:00 00:00:00 2022-10-19 2022-10-19 Travel [facility] [id number] [facility]00 [facility] 2022-10-18 2022-10-18 Telephone Borroger, [facility] [id number] 00:[facility] 00[facility]00[facility]00 [facility] 2022-07-24 2022-07-24 Telephone Nayaner, [facility] [id number] 00:00[facility]00 00:00:00 [facility] 2022-07-19 2022-07-19 Telephone Sofia, [facility] [id number] 00:00[facility] 00:00:00 [facility] 2022-07-18 2022-07-18 Office Domonique, [facility] [id number] 10:45:00 11:46:40 Visit [facility] 2022-07-18 2022-07-18 Outpatient EL DOMONIQUE [facility] [id number] 10:34:55 11:46:40 [facility] 2022-07-11 2022-07-11 Outpatient EL DOMONIQUE, [facility] [id number] 00:00:00 00:00:00 [facility] Results This patient has no known results.
--- NOTE | 2022-10-24 13:52 | RAD REPORT ---
EXAM DESCRIPTION: Kerline Single View10/24/2022 1:01 pm CLINICAL HISTORY: CHEST PAIN COMPARISON: <Comparisons> TECHNIQUE: Portable AP view of the chest. FINDINGS: The lungs are clear. No pneumothorax or effusion. The cardiomediastinal contours are unrem arkable. IMPRESSION: No acute cardiopulmonary process.
--- NOTE | 2022-10-24 13:57 | RAD REPORT ---
EXAM DESCRIPTION: CT - Head Brain Wo Cont - 10/24/2022 12:58 pm CLINICAL HISTORY: DIZZINESS COMPARISON: HEAD BRAIN W O CONTRAST dated 11/08/2007 TECHNIQUE: Noncontrast head CT images ad were obtained without IV contrast. Multiplanar reformats we re generated and reviewed. All CT scans are performed using dose optimization technique as appropriate and may include automated exposure control or mA/KV adjustment according to patient size. FINDINGS: No intracranial hemorrhage, mass, or edema. Midline structures are unremarkable. Normal ventricular caliber for age. Figueroa-white matter differentiation is preserved, without evidence of acute infarct. No abnormal extra- axial fluid collections. Mastoid air cells and visualized portions of the paranasal sinuses are clear. No acute bony findings. IMPRESSION: No evidence of an acute intracranial process.
[2022-10-24 14:01] LABS: Absolute Lymphocytes (CBC) 2.5 K/uL (0.7-4.9); Hematocrit 36.9 % (36.0-45.0); Lymphocytes % 33.8 % (15.3-44.8); MCV 91.3 fL (80-100); MPV 9.2 fL (7.6-11.3); RBC Red Blood Cell Count 4.04 M/uL (3.86-4.86)
[2022-10-24 14:55] LABS: Potassium 3.7 mEq/L (3.5-5.1); Troponin High Sensitivity 3.1 pg/mL (<58.9)
--- NOTE | 2022-10-24 15:55 | EDPHYS ---
Physician Documentation [facility] Name: Soco Silver Age: 32 yrs Sex: Female : 1990 Arrival Date: 10/24/2022 Time: 12:05 Bed 15 Private MD: Susi Max ED Physician Ze Goddard HPI: 10/24 12:40 This 32 yrs old Black Female presents to ER via Ambulatory with complaints of Blood kb Pressure Problem, Dizziness. 12:40 The patient complains of pain to the top of head and forehead. The patient describes kb the headache as constant, throbbing. Onset: The symptoms/episode began/occurred this morning. Associated signs and symptoms: Pertinent positives: dizziness. Severity of symptoms: At its worst the pain was mild, moderate, in the emergency department the pain is unchanged. The symptoms are alleviated by nothing. the symptoms are aggravated by nothing. The patient has not experienced similar symptoms in the past. The patient has not recently seen a physician. Pt reports she woke up with a headache and now isn't feeling right. States she has had slight dizziness for about 2 hours. Reports she was diagnosed with hypertension last month and started on lisinopril. Took the lisinopril about 2 hours ago.. 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 - Social history:: Smoking status: Patient denies any tobacco usage or history of. ROS: 12:40 Constitutional: Negative for fever, chills, and weight loss. kb 12:40 Cardiovascular: Positive for chest pain. 12:40 Neuro: Positive for dizziness, headache. 12:40 All other systems are negative. Exam: 12:40 Constitutional: This is a well developed, well nourished patient who is awake, alert, kb and in no acute distress. Head/Face: Normocephalic, atraumatic. ENT: Moist Mucous membranes Cardiovascular: Regular rate and rhythm with a normal S1 and S2. No gallops, murmurs, or rubs. No pulse deficits. Respiratory: Respirations even and unlabored. No increased work of breathing. Talking in full sentences Abdomen/GI: Soft, non-tender. No distention Skin: Warm, dry with normal turgor. Normal color. MS/ Extremity: Pulses equal, no cyanosis. Neurovascular intact. Full, normal range of motion. Neuro: Awake and alert, GCS 15, oriented to person, place, time, and situation. Moves all extremities. Normal gait. Psych: Awake, alert, with orientation to person, place and time. Behavior, mood, and affect are within normal limits. 13:54 ECG was reviewed by the Attending Physician. kb Vital Signs: 12:12 BP 139 / 95; Pulse 81; Resp 16; Temp 99(TE); Pulse Ox 100% on R/A; Weight 104.33 kg; hb Height 5 ft. 5 in. ; Pain 2/10; 14:00 BP 139 / 103; Pulse 75; Resp 16; Pulse Ox 100% on R/A; db 15:00 BP 133 / ???; Pulse 76; Resp 16; Pulse Ox 100% on R/A; db 16:00 BP 147 / 87; Pulse 89; Resp 16; Pulse Ox 100% on R/A; db 12:12 Body Mass Index 38.27 (104.33 kg, 165.1 cm) hb 12:12 Pain Scale: Adult hb Hugo Coma Score: 15:54 Eye Response: spontaneous(4). Motor Response: obeys commands(6). Verbal Response: kb oriented(5). Total: 15. MDM: 12:16 Patient medically screened. kb 12:40 Data reviewed: vital signs, nurses notes. kb 15:54 Differential diagnosis: intracerebral hemorrhage, Primary hypertension, headache, kb migraine, dehydration. Counseling: I had a detailed discussion with the patient and/or guardian regarding: the historical points, exam findings, and any diagnostic results supporting the discharge/admit diagnosis, lab results, radiology results, the need for outpatient follow up, a family practitioner, to return to the emergency department if symptoms worsen or persist or if there are any questions or concerns that arise at home. ED course: Patient is feeling better. Blood pressure 126/88. Dizziness resolved. Patient educated to follow-up with PCP and given return precautions. Verbal understanding received.. 10/24 12:37 Order name: Basic Metabolic Panel; Complete Time: 15:02 kb 10/24 12:37 Order name: CBC with Diff; Complete Time: 15:02 kb 10/24 12:37 Order name: Troponin HS; Complete Time: 15:02 kb 10/24 12:37 Order name: XRAY Chest (1 view); Complete Time: 13:57 kb 10/24 12:37 Order name: CT Head Brain wo Cont; Complete Time: 13:58 kb 10/24 12:37 Order name: EKG; Complete Time: 12:38 kb 10/24 12:37 Order name: Cardiac monitoring; Complete Time: 13:33 kb 10/24 12:37 Order name: EKG - Nurse/Tech; Complete Time: 13:45 kb 10/24 12:37 Order name: IV Saline Lock; Complete Time: 13:45 kb 10/24 12:37 Order name: Labs collected and sent; Complete Time: 13:45 kb 10/24 12:37 Order name: O2 Per Protocol; Complete Time: 13:33 kb 10/24 12:37 Order name: O2 Sat Monitoring; Complete Time: 13:30 kb EC:54 Rate is 66 beats/min. Rhythm is regular. QRS [place] is Normal. MI interval is normal at kb 176 msec. QRS interval is normal at 92 msec. QT interval is normal at 406 msec. Administered Medications: No medications were administered Disposition: 17:24 Co-signature as Attending Physician, Ze Goddard MD I reviewed the patient's care rt provided by the Advanced Practice Provider and agree with the diagnosis and treatment plan. Disposition Summary: 10/24/22 15:54 Discharge Ordered Location: Home kb Condition: Stable kb Diagnosis - Dizziness and giddiness kb - Essential (primary) hypertension kb Followup: kb - With: Emergency Department - When: As needed - Reason: Worsening of condition Followup: kb - With: Private Physician - When: 2 - 3 days - Reason: Recheck today's complaints, Continuance of care, Re-evaluation by your physician Discharge Instructions: - Discharge Summary Sheet kb - Hypertension, Adult, [id number] kb - Dizziness, [id number] kb Forms: - Medication Reconciliation Form kb - Thank You Letter kb - Antibiotic Education kb - Prescription Opioid Use kb Signatures: Dispatcher [employer] EDMS Niecy Diaz FNP-C FNP-Deneen Witt RN RN Juanita Purdy RN RN db [place], Ryan, MD MD rt Corrections: (The following items were deleted from the chart) 15:56 12:40 Pt reports she woke up with a headache and now isn't feeling right. States she kb has had slight dizziness for about 2 hours. kb
--- NOTE | 2022-10-24 15:55 | ER ---
Nurse's Notes [facility] Name: Soco Silver Age: 32 yrs Sex: Female : 1990 Arrival Date: 10/24/2022 Time: 12:05 Bed 15 Private MD: Susi Max Diagnosis: Dizziness and giddiness;Essential (primary) hypertension Presentation: 10/24 12:12 Chief complaint: Chest pressure x 1 hour, headache since this morning. Stated "I just hb don't feel right.". Coronavirus screen: At this time, the client does not indicate any symptoms associated with coronavirus-19. Ebola Screen: No symptoms or risks identified at this time. Initial Sepsis Screen: Does the patient meet any 2 criteria? No. Patient's initial sepsis screen is negative. Does the patient have a suspected source of infection? No. Patient's initial sepsis screen is negative. Risk Assessment: Do you want to hurt yourself or someone else? Patient reports no desire to harm self or others. Onset of symptoms was October 24, 2022. 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 - Social history:: Smoking status: Patient denies any tobacco usage or history of. Screenin:13 [facility] ED Fall Risk Assessment (Adult) History of falling in the last 3 months, db including since admission No falls in past 3 months (0 pts) Confusion or Disorientation No (0 pts) Intoxicated or Sedated No (0 pts) Impaired Gait No (0 pts) Mobility Assist Device Used No (0 pt) Altered Elimination No (0 pt) Score/Fall Risk Level 0 - 2 = Low Risk Oriented to surroundings, Maintained a safe environment. Abuse screen: Denies threats or abuse. Denies injuries from another. Nutritional screening: No deficits noted. Tuberculosis screening: No symptoms or risk factors identified. Assessment: 15:08 Reassessment: Patient appears in no apparent distress at this time. Patient and/or db family updated on plan of care and expected duration. Pain level reassessed. Patient is alert, oriented x 3, equal unlabored respirations, skin warm/dry/pink. General: Appears in no apparent distress. comfortable, Behavior is calm, cooperative. Pain: Complains of pain in top of head. 16:20 Reassessment: Patient appears in no apparent distress at this time. Patient and/or db family updated on plan of care and expected duration. Pain level reassessed. Patient is alert, oriented x 3, equal unlabored respirations, skin warm/dry/pink. Patient states feeling better. Patient states symptoms have improved. Neuro: Level of Consciousness is awake, alert, obeys commands, Oriented to person, place, time, situation. Vital Signs: 12:12 BP 139 / 95; Pulse 81; Resp 16; Temp 99(TE); Pulse Ox 100% on R/A; Weight 104.33 kg; hb Height 5 ft. 5 in. ; Pain 2/10; 14:00 BP 139 / 103; Pulse 75; Resp 16; Pulse Ox 100% on R/A; db 15:00 BP 133 / ???; Pulse 76; Resp 16; Pulse Ox 100% on R/A; db 16:00 BP 147 / 87; Pulse 89; Resp 16; Pulse Ox 100% on R/A; db 12:12 Body Mass Index 38.27 (104.33 kg, 165.1 cm) hb 12:12 Pain Scale: Adult hb Hugo Coma Score: 15:54 Eye Response: spontaneous(4). Motor Response: obeys commands(6). Verbal Response: kb oriented(5). Total: 15. ED Course: 12:05 Patient arrived in ED. am2 12:05 Renny Guadarrama MD is Private Physician. am2 12:05 Susi Max FNP-C is Private Physician. am2 12:14 Triage completed. hb 12:14 Arm band placed on. hb 12:16 Niecy Diaz [facility]-C [facility] kb 12:16 Ze Goddard MD is Attending Physician. kb 12:58 CT Head Brain wo Cont In Process Unspecified. EDMS 13:02 XRAY Chest (1 view) In Process Unspecified. EDMS 13:26 Juanita Haddad, RANDY is Primary Nurse. db 13:44 Inserted saline lock: 22 gauge in right antecubital area, using aseptic technique. zm Blood collected. 13:45 Basic Metabolic Panel Sent. zm 13:45 CBC with Diff Sent. zm 13:45 Troponin HS Sent. zm 16:00 Patient has correct armband on for positive identification. Placed in gown. Bed in low db position. Call light in reach. Side rails up X 1. Client placed on continuous cardiac and pulse oximetry monitoring. NIBP monitoring applied. Warm blanket given. 16:00 No provider procedures requiring assistance completed. IV discontinued, intact, db bleeding controlled, No redness/swelling at site. Administered Medications: No medications were administered Medication: 16:00 VIS not applicable for this client. db Outcome: 15:54 Discharge ordered by . fredi 16:00 Discharged to home ambulatory. db 16:00 Condition: stable 16:00 Discharge instructions given to patient, Instructed on discharge instructions, follow up and referral plans. 16:29 Patient left the ED. db Signatures: Dispatcher [employer] EDMI Niecy Diaz, LIMNOLOGIST-C LIMNOLOGIST-Deneen Witt RN RN hb Moreno, Amanda am2 Martinez, Zaina zm Benton, Danielle, RN RN db
[2022-10-24 17:09] VITALS: BP 147/87; TEMP 99; O2SAT 100
--- NOTE | 2022-10-25 12:16 | EKG ---
Test Date: 2022-10-24 Test Time: 13:50:07 Supervisory Air Intercept Controller: KIM MEASUREMENT RESULTS: Intervals: Rate: 66 SD: 176 QRSD: 92 QT: 388 QTc: 406 [place]: P: 45 SD: 176 QRS: -23 T: 27 INTERPRETIVE STATEMENTS: Normal sinus rhythm Normal ECG No previous ECG available for comparison Electronically Signed On 10-25-22 12:13:16 CDT by Yonathan Howell
== END 2022-10-24 16:29 | disposition home or self-care (01) ==
LOC: ER 12:03
DX: R42 Dizziness and giddiness (principal); I10 Essential (primary) hypertension
CPT/HCPCS: 36415; 70450; 71045; 80048; 84484; 85025; 93005

== ENCOUNTER → 2023-10-24 | Emergency (ER) | payer BC, OTHER ==
[~2023-10-24] MED LIST changes: +DIPHENHYDRAMINE 50 MG/ML VIAL ONE; -METHYLERGONOVINE 0.2 MG TAB PO PRN; -METHYLERGONOVINE 0.2MG/ML AMP IM PRN; +METOCLOPRAMIDE 10 MG/2mL INJ ONE; +NA CHLORIDE 0.9% 1,000 ML ONE; -Rho(D) IG (HUMAN) 300 MCG SYR IM PRN
--- NOTE | 2023-10-24 19:13 | RAD REPORT ---
EXAM DESCRIPTION: USExtrem Venous W Compress Bil10/24/2023 6:52 pm CLINICAL HISTORY: Leg pain COMPARISON: none FINDINGS: The common femoral, superficial femoral, greater saphenous, popliteal and posterior tibial veins bilaterally are compressible and demonstrate augmentation. Doppler demonstrates good flow. Grayscale, color and spectral analysis performed on all vessels IMPRESSION: No evidence of deep venous thrombosis involving either lower extremity.
--- NOTE | 2023-10-24 19:22 | RAD REPORT ---
EXAM DESCRIPTION: US - OB Limited - 10/24/2023 6:52 pm CLINICAL HISTORY: with abdominal pain COMPARISON: None FINDINGS: A limited OB ultrasound performed A single live intrauterine is in cephalic presentation. The placenta is anterior 2.5 centim eter. 2.5 centimeter placental Savage is present within the posterior aspect of the placenta. The cord insert s into the placenta in this region The amniotic fluid is within normal limits. Cardiac activity 153 beats per minute. Cervix 3.2 centimeters FL 1.7 centimeters Estimated weight Estimated weight The right and left adnexa unremarkable IMPRESSION: A single live intrauterine in cephalic presentation The estimated gestational age 15 weeks 0 days [place] 04/16/2024 Normal amniotic fluid 2.5 centimeter placental Savage is present within the posterior aspect of the placenta. The umbilical c ord inserts into the placenta in this region If a survey is desired it should be performed in approximately 3 weeks. The placenta can be richie ssessed at this time
[2023-10-24 20:48] LABS: Hematocrit 34.1 % (36.0-45.0); Hemoglobin 11.7 g/dL (12.0-15.0); MCH 31.4 pg (27.0-35.0); MCHC 34.3 g/dL (32.0-36.0); MCV 91.8 fL (80-100); Platelets 233 thou/uL (152-406); RBC Red Blood Cell Count 3.71 M/uL (3.86-4.86); Red Cell Distribution Width 13.3 % (12.1-15.2)
[2023-10-24 20:49] LABS: Absolute Eosinophils 0.1 K/uL (0-0.5); Absolute Lymphocytes (CBC) 2.8 K/uL (0.7-4.9); Absolute Monocytes 0.9 K/uL (0.1-1.3); Absolute Neutrophil 6.1 K/uL (1.8-8.0); Basophils % 0.4 % (0-1.3); Eosinophils % 0.7 % (0-4.4); Lymphocytes % 28.4 % (15.3-44.8); Monocytes % 9.1 % (3.3-12.3); Neutrophils % 61.4 % (41.7-73.7)
[2023-10-24 20:53] LABS: Specific Gravity 1.025 (1.005-1.030); Sqamous Epithelial <5 /HPF (None Seen); Urine Bacteria None Seen /HPF (<20); Urine Bilirubin NEGATIVE (Negative); Urine Blood Trace (Negative); Urine Clarity Clear (Clear); Urine Color Light-Yellow (Yellow); Urine Culture Reflex Order NOT NEEDED; Urine Glucose NEGATIVE (Negative); Urine Ketones NEGATIVE (Negative); Urine Microscopic Reflex YN ORDER UMIC; Urine Mucus Slight /HPF (None Seen); Urine Nitrite NEGATIVE (Negative); Urine Protein TRACE (Negative); Urine RBC <5 /HPF (None Seen); Urine Urobilinogen 1+ (Normal); Urine WBC <5 /HPF (<5); Urine pH 6.5 (5.0-7.0)
[2023-10-24 21:05] LABS: SARS-CoV-2 Antigen CONTROL BLUE LINE VIS/BG OK; SARS-CoV-2 Antigen Rapid Res Negative (Negative)
[2023-10-24 21:16] LABS: Albumin 3.4 g/dL (3.4-5.0); Albumin/Globulin Ratio 0.8 (1.1-1.8); Anion Gap 11.3 mEq/L (5.0-15.0); Bilirubin Total 0.4 mg/dL (0.2-1.0); Globulin 4.5 g/dL (2.3-3.5); Potassium 3.3 mEq/L (3.5-5.1); Protein, Total 7.9 g/dL (6.4-8.2)
--- NOTE | 2023-10-24 22:38 | EDPHYS ---
Physician Documentation [facility] Name: Soco Silver Age: 33 yrs Sex: Female : 1990 Arrival Date: 10/24/2023 Time: 17:43 Bed 14 Private MD: ED Physician Leonardo Mcclendon HPI: 10/23 20:30 This 33 yrs old Black Female presents to ER via Ambulatory with complaints of Headache, cp Leg Pain, 15 weeks . 20:30 The patient complains of pain to the top of head and forehead. The patient describes cp the headache as aching. 20:30 Associated signs and symptoms: Pertinent positives: leg pain and cramping, Pertinent cp negatives: altered mental status, fever, neck stiffness, paresthesias, sinus congestion, sinus tenderness, weakness. 20:30 Severity of symptoms: in the emergency department the pain is unchanged, despite home cp interventions. Headache History: Other hx of migraine headache. Historical: - Allergies: 17:49 No Known Allergies; mb9 - Home Meds: 17:49 Lovenox Sub-Q [Active]; mb9 - PMHx: 17:49 Migraine; miscarriage; blood clots; Hypertensive disorder; mb9 - PSHx: 17:49 Appendectomy; mb9 - Immunization history:: Adult Immunizations up to date. - Social history:: Smoking status: Patient denies any tobacco usage or history of. ROS: 20:35 Constitutional: Negative for body aches, chills, fever, poor PO intake, cp 20:35 Eyes: Negative for injury, pain, redness, and discharge, cp 20:35 ENT: Negative for drainage from ear(s), ear pain, sore throat, difficulty swallowing, difficulty handling secretions, 20:35 Cardiovascular: Negative for chest pain, edema, palpitations, 20:35 Respiratory: Negative for cough, shortness of breath, wheezing, 20:35 Abdomen/GI: Negative for abdominal pain, vomiting, diarrhea, constipation, 20:35 : Negative for urinary symptoms, pelvic pain, flank pain, vaginal bleeding, 20:35 MS/extremity: Positive for pain, of the right leg and left leg, cramps, 20:35 Neuro: Positive for headache, Negative for altered mental status, weakness, 20:35 All other systems are negative, Exam: 20:40 Constitutional: The patient appears in no acute distress, alert, awake, comfortable, cp non-toxic, well developed, well nourished, 20:40 Head/Face: Normocephalic, atraumatic. cp 20:40 Eyes: Periorbital structures: appear normal, Pupils: equal, round, and reactive to light and accomodation, Extraocular movements: intact throughout, Conjunctiva: normal, no exudate, no injection, Sclera: no appreciated abnormality, Lids and lashes: appear normal, bilaterally, 20:40 ENT: External ear(s): are unremarkable, Nose: is normal, Mouth: Lips: moist, Oral mucosa: pink and intact, moist, Posterior pharynx: is normal, airway is patent, no erythema, no exudate, 20:40 Neck: ROM/movement: is normal, is supple, without pain, no range of motions limitations, 20:40 Chest/axilla: Inspection: normal, 20:40 Cardiovascular: Rate: tachycardic, Rhythm: regular, 20:40 Respiratory: the patient does not display signs of respiratory distress, Respirations: normal, no use of accessory muscles, no retractions, labored breathing, is not present, Breath sounds: are clear throughout, no decreased breath sounds, no stridor, no wheezing, 20:40 Abdomen/GI: Inspection: abdomen appears normal, Palpation: abdomen is soft and non-tender, in all quadrants, 20:40 Back: pain, is absent, ROM is normal, 20:40 Musculoskeletal/extremity: Extremities: grossly normal except: noted in the right leg and left leg: pain, 20:40 Neuro: Orientation: to person, place \T\ time. Mentation: is normal, Motor: moves all fours, strength is normal, Sensation: is normal, Vital Signs: 17:47 BP 149 / 82; Pulse 115; Resp 18; Temp 98(O); Pulse Ox 100% ; Weight 76.66 kg; Height 5 mb9 ft. 5 in. ; Pain 6/10; 20:13 BP 131 / 74; Pulse 86; Resp 16; Pulse Ox 100% on R/A; me1 20:30 BP 111 / 74; Pulse 81; Resp 16; Pulse Ox 100% ; me1 21:00 BP 108 / 77; Pulse 80; Resp 16; Pulse Ox 100% on R/A; me1 17:47 Body Mass Index 28.12 (76.66 kg, 165.1 cm) mb9 17:47 Pain Scale: Adult mb9 MDM: 17:56 Patient medically screened. [facility] 22:36 Data reviewed: vital signs, nurses notes, lab test result(s), radiologic studies, cp ultrasound, I have discussed the patient's presentation/case with the attending Emergency Department Physician; and as a result, I will discharge patient. 22:36 Differential diagnosis: hypertensive headache, migraine, tension headache. I considered cp the following discharge prescriptions or medication management in the emergency department Medications were administered in the Emergency Department. See MAR. Response to treatment: the patient's symptoms have markedly improved after treatment, and as a result, I will discharge patient. 10/23 17:59 Order name: CBC with Diff; Complete Time: 22:30 [facility] 10/23 22:30 Interpretation: Normal except: RBC 3.71; HGB 11.7; HCT 34.1. 10/23 17:59 Order name: Comprehensive Metabolic Panel; Complete Time: 22:30 [facility] 10/23 22:30 Interpretation: Normal except: NA 134; K 3.3; GLOB 4.5; A/G 0.8. 10/23 17:59 Order name: Urinalysis w/ reflexes; Complete Time: 22:30 [facility] 10/23 22:30 Interpretation: Normal except: UBLD Trace; UPROT TRACE; UUROB 1+. 10/23 17:59 Order name: Flu; Complete Time: 22:30 [facility] 10/23 17:59 Order name: SARS RAPID; Complete Time: 22:30 [facility] 10/23 17:59 Order name: Quantitative Hcg; Complete Time: 22:30 [facility] 10/23 22:30 Interpretation: Reviewed. 10/23 17:59 Order name: Abo/rh Typing; Complete Time: 22:30 [facility] 10/23 17:59 Order name: Rh Type [facility] 10/23 17:59 Order name: US Extremity Venous W Compression Eusebio; Complete Time: 19:25 [facility] 10/23 17:59 Order name: US OB Limited; Complete Time: 19:25 [facility] Administered Medications: 20:44 Drug: NS 0.9% IV 1000 ml IV at 1 bolus Per protocol; 1000 mL bolus Route: IV; Rate: 1 me1 bolus; Site: right antecubital; 23:12 Follow up: Response: No adverse reaction; IV Status: Completed infusion; IV Intake: me1 1000ml 20:44 Drug: metoCLOPramide IVP 10 mg IVP once; over 1 to 2 minutes Route: IVP; Site: right me1 antecubital; 23:12 Follow up: Response: No adverse reaction; Marked relief of symptoms me1 20:44 Drug: diphenhydrAMINE IVP 25 mg IVP once Route: IVP; Site: right antecubital; me1 23:12 Follow up: Response: No adverse reaction; Marked relief of symptoms me1 Disposition Summary: 10/24/23 22:37 Discharge Ordered Notes: Location: Home cp Problem: new cp Symptoms: have improved cp Condition: Stable cp Diagnosis - Headache cp - Pain in right leg cp - Pain in left leg cp Followup: cp - With: Private Physician - When: 2 - 3 days - Reason: Recheck today's complaints Discharge Instructions: - Discharge Summary Sheet cp - Migraine Headache cp - Musculoskeletal Pain cp Forms: - Medication Reconciliation Form cp - Thank You Letter cp - Antibiotic Education cp - Prescription Opioid Use cp - Patient Portal Instructions cp - Leadership Thank You Letter cp Signatures: Dispatcher [employer] Leonardo Watkins MD MD cha Page, Corey, PA PA cp Letha Garcia, RN RN mb9 Alejandrina Parsons RN RN me1
--- NOTE | 2023-10-24 22:38 | ER ---
Nurse's Notes [facility] Name: Soco Silver Age: 33 yrs Sex: Female : 1990 Arrival Date: 10/24/2023 Time: 17:43 Bed 14 Private MD: Diagnosis: Headache;Pain in right leg;Pain in left leg Presentation: 10/23 17:47 Chief complaint: Patient states: "I have a bad headache and left leg cramps. I have a mb9 history of blood clots and worried. I'm currently Lovenox daily to prevent clots.". Coronavirus screen: At this time, the client does not indicate any symptoms associated with coronavirus-19. Ebola Screen: No symptoms or risks identified at this time. Initial Sepsis Screen: Does the patient meet any 2 criteria? No. Patient's initial sepsis screen is negative. Does the patient have a suspected source of infection? No. Patient's initial sepsis screen is negative. Risk Assessment: Do you want to hurt yourself or someone else? Patient reports no desire to harm self or others. Onset of symptoms was October 24, 2023. 17:47 Method Of Arrival: Ambulatory mb9 17:47 Acuity: XOCHITL 3 mb9 Triage Assessment: 17:50 Headache History: The patient has had previous headaches. General: Appears in no mb9 apparent distress. Behavior is calm, cooperative. Pain: Complains of pain in head and left leg Pain does not radiate. Pain currently is 6 out of 10 on a pain scale. Quality of pain is described as throbbing, Pain began suddenly, Is continuous. EENT: No signs and/or symptoms were reported regarding the EENT system. Neuro: Jaffe Agitation-Sedation Scale (RASS): 0 - Alert and Calm Level of Consciousness is awake, alert, obeys commands, Oriented to person, place, time, situation, Appropriate for age Reports headache. Cardiovascular: Patient's skin is warm and dry. Respiratory: Airway is patent. Derm: Skin is pink, warm \\T\\ dry. Musculoskeletal: Range of motion: intact in all extremities. Historical: - Allergies: 17:49 No Known Allergies; mb9 - Home Meds: 17:49 Lovenox Sub-Q [Active]; mb9 - PMHx: 17:49 Migraine; miscarriage; blood clots; Hypertensive disorder; mb9 - PSHx: 17:49 Appendectomy; mb9 - Immunization history:: Adult Immunizations up to date. - Social history:: Smoking status: Patient denies any tobacco usage or history of. Screenin:10 [facility] ED Fall Risk Assessment (Adult) History of falling in the last 3 months, me1 including since admission No falls in past 3 months (0 pts) Confusion or Disorientation No (0 pts) Intoxicated or Sedated No (0 pts) Impaired Gait No (0 pts) Mobility Assist Device Used No (0 pt) Altered Elimination No (0 pt) Score/Fall Risk Level 0 - 2 = Low Risk Maintained a safe environment, Provided non-skid footwear, Hourly rounding (assess needs \\T\\ fall precautionary measures) done. Abuse screen: Denies threats or abuse. Nutritional screening: No deficits noted. Tuberculosis screening: No symptoms or risk factors identified. Assessment: 21:10 General: Appears uncomfortable, well groomed, well developed, well nourished, Behavior me1 is calm, cooperative, appropriate for age, Reports "I have a bad headache and left leg cramps. I have a history of blood clots and worried. I'm currently Lovenox daily to prevent clots.". Pain: Complains of pain in head Pain does not radiate. Pain currently is 7 out of 10 on a pain scale. Quality of pain is described as aching, Pain began gradually, 1 day ago. Is continuous. Neuro: Level of Consciousness is awake, alert, obeys commands, Oriented to person, place, time, situation, Appropriate for age. Cardiovascular: Capillary refill < 3 seconds Patient's skin is warm and dry. Respiratory: Airway is patent Respiratory effort is even, unlabored, Respiratory pattern is regular, symmetrical. Musculoskeletal: Reports pain in right leg and left leg. Vital Signs: 17:47 BP 149 / 82; Pulse 115; Resp 18; Temp 98(O); Pulse Ox 100% ; Weight 76.66 kg; Height 5 mb9 ft. 5 in. ; Pain 6/10; 20:13 BP 131 / 74; Pulse 86; Resp 16; Pulse Ox 100% on R/A; me1 20:30 BP 111 / 74; Pulse 81; Resp 16; Pulse Ox 100% ; me1 21:00 BP 108 / 77; Pulse 80; Resp 16; Pulse Ox 100% on R/A; me1 17:47 Body Mass Index 28.12 (76.66 kg, 165.1 cm) mb9 17:47 Pain Scale: Adult mb9 ED Course: 17:45 Patient arrived in ED. im 17:49 Triage completed. mb9 17:49 Arm band placed on. mb9 17:56 Leonardo Mcclendon MD is Attending Physician. rafa 18:54 US Extremity Venous W Compression Eusebio In Process Unspecified. EDMS 18:54 US OB Limited In Process Unspecified. EDMS 20:07 Leonardo Bran PA is PHCP. cp 20:14 Alejandrina Parsons, RANDY is Primary Nurse. me1 20:36 Inserted saline lock: 22 gauge in right antecubital area, using aseptic technique. me1 20:36 Initial lab(s) drawn, by oh, sent to lab. Urine collected: clean catch specimen, clear, me1 COVID swab sent to lab. Flu and/or RSV swab sent to lab. 20:36 Urinalysis w/ reflexes Sent. me1 20:36 SARS RAPID Sent. me1 20:36 Flu Sent. me1 20:36 Quantitative Hcg Sent. me1 20:36 Abo/rh Typing Sent. me1 20:36 Rh Type Sent. me1 21:10 Patient has correct armband on for positive identification. Bed in low position. Call me1 light in reach. Side rails up X2. Provided Education on: POC. Verbalized understanding. . 21:10 No provider procedures requiring assistance completed. me1 Administered Medications: 20:44 Drug: NS 0.9% IV 1000 ml IV at 1 bolus Per protocol; 1000 mL bolus Route: IV; Rate: 1 me1 bolus; Site: right antecubital; 23:12 Follow up: Response: No adverse reaction; IV Status: Completed infusion; IV Intake: me1 1000ml 20:44 Drug: metoCLOPramide IVP 10 mg IVP once; over 1 to 2 minutes Route: IVP; Site: right oh1 antecubital; 23:12 Follow up: Response: No adverse reaction; Marked relief of symptoms me1 20:44 Drug: diphenhydrAMINE IVP 25 mg IVP once Route: IVP; Site: right antecubital; me1 23:12 Follow up: Response: No adverse reaction; Marked relief of symptoms me1 Medication: 21:10 VIS not applicable for this client. me1 Intake: 23:12 IV: 1000ml; Total: 1000ml. me1 Outcome: 22:37 Discharge ordered by . cristóbal 23:13 Patient left the ED. me1 Signatures: Dispatcher [employer] EDLeonardo Sheriff MD MD cha Page, Corey, PA Letha Olivier cp RN RN mb9 Natalia Reeder Michelle RN RN me1 Corrections: (The following items were deleted from the chart) :10 17:47 Chief complaint: Patient states: "I have a bad headache and left leg cramps. I me1 have a history of blood clots and worried. I'm currently Lovenox daily to prevent clots." mb9
[2023-10-24 23:35] VITALS: BP 108/77; TEMP 98; O2SAT 100
== END ==
LOC: ER 17:43
DX: O99.891 Other specified diseases and conditions complicating pregnancy (principal); R51.9 Headache, unspecified; M79.605 Pain in left leg; M79.604 Pain in right leg; Z3A.15 15 weeks gestation of pregnancy; Z11.52 Encounter for screening for COVID-19; Z79.01 Long term (current) use of anticoagulants; Z86.718 Personal history of other venous thrombosis and embolism
CPT/HCPCS: 96361; 85025; 81001; 36415; 86900; 86901; 84702; 80053; 87804 ×2; 93970; 76815; 96375; 96374; 99284; 87811; J2765; J1200; J7030